=== PATIENT | female | born 1985 | race Caucasian/White ===

== ENCOUNTER 2018-03-02 11:41 | Emergency (ER) | payer OTHER ==
[~2018-03-02] VITALS: Ht 160 cm; Wt 121.0 kg
[2018-03-02 11:45] VITALS: BP 152/90
[2018-03-02] MEDS ORDERED: ACETAMINOPHEN 325MG TABLET PO ONE (13:45)
== END 2018-03-02 13:52 | disposition home or self-care (01) ==
LOC: ER 11:41
DX: T16.2XXA Foreign body in left ear, initial encounter (principal); X58.XXXA Exposure to other specified factors, initial encounter; Y93.89 Activity, other specified; Y92.89 Other specified places as the place of occurrence of the external cause; Y99.8 Other external cause status
CPT/HCPCS: 69200; 99284

== ENCOUNTER 2020-11-11 16:49 | Emergency (ER) | payer OTHER ==
[~2020-11-11] VITALS: Ht 157.5 cm; Wt 127.0 kg
[2020-11-11 20:00] LABS: BASOPHILS % 0.5 % (0.0-2.0); HEMATOCRIT. 33.4 % (36.0-48.0); HEMOGLOBIN. 11.3 g/dL (12.0-16.0); LYMPHOCYTES % 31.4 % (20.0-50.0); MEAN CORPUSCULAR HEMOGLOBIN 28.7 pg (28.0-32.0); MEAN CORPUSCULAR VOLUME 84.8 fL (81.0-99.0); MEAN PLATELET VOLUME 7.7 fl (7.4-10.4); NEUTROPHILS % 61.1 % (40.0-76.0); PLATELET 345 x1000/uL (130-400); RED BLOOD CELL COUNT 3.94 mill/uL (4.2-5.4); RED CELL DISTRIBUTION WIDTH 14.3 % (11.6-14.6)
[2020-11-11 20:04] LABS: CHLORIDE 107 mEq/L (98-107)
[2020-11-11 21:32] LABS: CLARITY URINE CLOUDY (CLEAR); COLOR URINE ORANGE (YELLOW); KETONES URINE NEGATIVE (NEGATIVE); LEUKOCYTE ESTERASE URINE 1+ (NEGATIVE); NITRITE URINE NEGATIVE (NEGATIVE); OCCULT BLOOD URINE 3+ (NEGATIVE); PH URINE 5.5 (4.5-8.0); PROTEIN URINE 2+ (NEGATIVE); SPECIFIC GRAVITY URINE 1.032 (1.005-1.030)
[2020-11-12] MEDS ORDERED: CEPH500T MT (00:21)
[2020-11-12 00:52] LABS: UCG SCREEN NEGATIVE
[2020-11-12 00:55] VITALS: BP 125/72
== END 2020-11-12 01:07 | disposition home or self-care (01) ==
LOC: ER 16:49
DX: N93.9 Abnormal uterine and vaginal bleeding, unspecified (principal); R53.1 Weakness; R03.0 Elevated blood-pressure reading, without diagnosis of hypertension
CPT/HCPCS: 36415; 76830; 76856; 80053; 81003; 81025; 85025; 99285; Z7610